=== PATIENT | male | born 1940 | race African-American/Black ===

== ENCOUNTER 2018-01-21 | Inpatient (IN) | payer MEDICARE, MEDICAID ==
[~2018-01-21] VITALS: Ht 172.7 cm; Wt 90.3 kg
[2018-01-21] VITALS (62 sets, daily range): BP systolic 73–157; BP diastolic 35–95
[~2018-01-21] MED LIST: AMLO10TA4 PO; DOXA2TAB2 PO; DUTA0.5C2 PO; ERGO400T3 PO; NIFE30TA43 PO; OLME1TAB14 PO; TAMS-11 PO
[2018-01-21] MEDS ORDERED: NICARDIPINE 100 MG in SODIUM CHLORIDE 0.9% 60 ML IV PRN (01:45)
[2018-01-21 01:46] LABS: BG BASE EXCESS -1.9 mmol/L (-2.0-2.0); BG CARBOXYHEMOGLOBIN 0.7 % (0.5-1.5); BG DEOXYHEMOGLOBIN 3.6 % (0.0-5.0); BG FRACTION INSPIRED OXYGEN 50; BG HCO3 ACT 21.9 mmol/L (22.0-26.0); BG METHEMOGLOBIN 0.3 % (0.0-1.5); BG OXYGEN SATURATION 96.4 % (92.0-98.5); BG OXYHEMOGLOBIN 95.4 % (94.0-97.0); BG PCO2 35.1 mmHg (35.0-45.0); BG PH 7.413 (7.350-7.450); BG PO2 81.8 mmHg (75.0-100.0); BG SAMPLE SITE LEFT RADIAL; BG TIDAL VOLUME(mL) 500 mL; BG TOTAL HEMOGLOBIN 16.9 g/dL (12.0-18.0); BG VENT MODE VENT - A/C; BG VENT RATE 16 set
[2018-01-21] MEDS ORDERED: HYDR-4133 GT (02:22)
[2018-01-21] MEDS ORDERED: AMLO10TA80 MT (02:22)
[2018-01-21] MEDS ORDERED: ATOR20TA65 MT (02:22)
[2018-01-21] MEDS ORDERED: FAMO20TA8 MT (02:22)
[2018-01-21] MEDS ORDERED: IPRA3AMP31 IH (02:22)
[2018-01-21] MEDS ORDERED: FINA5TAB11 PO (02:22)
[2018-01-21] MEDS ORDERED: APIX2.5T MT (02:22)
[2018-01-21] MEDS ORDERED: AMI2 MT (02:22)
[2018-01-21] MEDS ORDERED: LACT1CAP60 MT (02:22)
[2018-01-21] MEDS ORDERED: TRAM50TA94 PO (02:22)
[2018-01-21] MEDS: PROPOFOL 10MG/ML 100ML 100 ML IV PRN (03:34)
[2018-01-21] MEDS ORDERED: ONDANSETRON HCL 4MG/2ML VIAL IV PRN (04:45)
[2018-01-21 07:03] LABS: INR 1.1; PROTHROMBIN TIME 11.4 sec (9.4-11.6)
[2018-01-21 07:45] LABS: HEMOGLOBIN. 15.7 g/dL (14.0-18.0); MEAN CORPUSCULAR HEMOGLOBIN 28.7 pg (28.0-32.0); MEAN CORPUSCULAR VOLUME 87.7 fL (80.0-94.0); MEAN PLATELET VOLUME 10.3 fl (7.4-10.4); PLATELET 238 x1000/uL (130-400); RED BLOOD CELL COUNT 5.47 mill/uL (4.7-6.1); RED CELL DISTRIBUTION WIDTH 15.4 % (11.6-14.6)
[2018-01-21] MEDS: IPRATROPIUM/ALBUTEROL 0.5-3(2.5)MG/3ML NEB HHN SCH ×3 (08:00→20:23)
[2018-01-21 08:53] LABS: PHOSPHORUS 3.7 mg/dL (2.5-4.9)
[2018-01-21] MEDS ORDERED: GADOBENATE DIMEGLUMINE 529 MG/ML 10ML IV ONE (09:07)
[2018-01-21] MEDS: LEVETIRACETAM 500 MG in SODIUM CHLORIDE 0.9% 100 ML IV SCH ×2 (09:38→21:02)
[2018-01-21] MEDS: DEXT 5%/LACTATED RINGERS 1,000 ML IV SCH (09:38)
[2018-01-21] MEDS ORDERED: HYDRALAZINE 20MG/ML VIAL IV PRN (09:45)
[2018-01-21] MEDS: PANTOPRAZOLE SODIUM 40 MG/VIAL IV SCH (10:10)
[2018-01-21] MEDS: CEFEPIME 2,000 MG in DEXT 5% WATER 100 ML IV SCH (12:37)
[2018-01-21 12:50] LABS: ATYPICAL LYMPHOCYTES 1; PLATELET ESTIMATE NORMAL
[2018-01-21] MEDS ORDERED: PHENYTOIN SODIUM 500 MG in SODIUM CHLORIDE 0.9% 50 ML IV NR (13:00)
[2018-01-21 13:04] LABS: CREATINE KINASE 45 IU/L (39-308)
[2018-01-21] MEDS: BUDESONIDE 0.5MG/2ML NEB HHN SCH (13:39)
[2018-01-21] MEDS: METRONIDAZOLE 500 MG PREMIX 100 ML IV SCH ×2 (13:53→21:03)
[2018-01-21 16:19] LABS: CLARITY URINE TURBID (CLEAR); COLOR URINE AMBER (YELLOW); KETONES URINE TRACE (NEGATIVE); LEUKOCYTE ESTERASE URINE 3+ (NEGATIVE); NITRITE URINE NEGATIVE (NEGATIVE); OCCULT BLOOD URINE 3+ (NEGATIVE); PROTEIN URINE 1+ (NEGATIVE); SPECIFIC GRAVITY URINE 1.028 (1.005-1.030)
[2018-01-21 17:05] LABS: *AMPHETAMINES SCREEN URINE NEGATIVE (NEGATIVE); *BARBITURATES SCREEN URINE NEGATIVE (NEGATIVE); *BENZODIAZEPINES SCREEN URINE PRESUMTIVE POSITIVE (NEGATIVE); *COCAINE SCREEN URINE NEGATIVE (NEGATIVE); METHADONE URINE SCREEN NEGATIVE (NEGATIVE)
[2018-01-21 17:07] LABS: CANNABINOID URINE SCREEN NEGATIVE (NEGATIVE); OPIATES URINE SCREEN NEGATIVE (NEGATIVE); PHENCYCLIDINE URINE SCREEN NEGATIVE (NEGATIVE)
[2018-01-21] MEDS ORDERED: PHENYTOIN SODIUM 300 MG in SODIUM CHLORIDE 0.9% 50 ML IV SCH (21:00)
[2018-01-21] MEDS: PHENYTOIN SODIUM 300 MG in SODIUM CHLORIDE 0.9% 50 ML IV SCH (21:00)
[2018-01-22] VITALS (52 sets, daily range): BP systolic 86–167; BP diastolic 52–102
[2018-01-22] MEDS: CEFEPIME 2,000 MG in DEXT 5% WATER 100 ML IV SCH ×2 (00:51→12:34)
[2018-01-22] MEDS: DEXT 5%/LACTATED RINGERS 1,000 ML IV SCH (01:02)
[2018-01-22] MEDS: BUDESONIDE 0.5MG/2ML NEB HHN SCH ×3 (01:50→20:13)
[2018-01-22] MEDS: IPRATROPIUM/ALBUTEROL 0.5-3(2.5)MG/3ML NEB HHN SCH ×4 (01:50→20:13)
[2018-01-22] MEDS: PROPOFOL 10MG/ML 100ML 100 ML IV PRN (02:59)
[2018-01-22 05:11] LABS: HEMATOCRIT. 42.4 % (42.0-52.0); HEMOGLOBIN. 13.9 g/dL (14.0-18.0); MEAN CORPUSCULAR HEMOGLOBIN 28.4 pg (28.0-32.0); MEAN CORPUSCULAR VOLUME 86.7 fL (80.0-94.0); MEAN PLATELET VOLUME 9.7 fl (7.4-10.4); PLATELET 213 x1000/uL (130-400); RED BLOOD CELL COUNT 4.89 mill/uL (4.7-6.1); RED CELL DISTRIBUTION WIDTH 15.8 % (11.6-14.6)
[2018-01-22 05:21] LABS: CHLORIDE 116 mEq/L (98-107)
[2018-01-22] MEDS: METRONIDAZOLE 500 MG PREMIX 100 ML IV SCH ×3 (05:43→21:22)
[2018-01-22 08:01] LABS: BG BASE EXCESS -1.2 mmol/L (-2.0-2.0); BG CARBOXYHEMOGLOBIN 0.8 % (0.5-1.5); BG DEOXYHEMOGLOBIN 1.8 % (0.0-5.0); BG FRACTION INSPIRED OXYGEN 40; BG HCO3 ACT 21.2 mmol/L (22.0-26.0); BG METHEMOGLOBIN 0.2 % (0.0-1.5); BG OXYGEN SATURATION 98.2 % (92.0-98.5); BG OXYHEMOGLOBIN 97.2 % (94.0-97.0); BG PCO2 29.3 mmHg (35.0-45.0); BG PH 7.478 (7.350-7.450); BG PO2 101.7 mmHg (75.0-100.0); BG SAMPLE SITE RIGHT RADIAL; BG TIDAL VOLUME(mL) 500 mL; BG TOTAL HEMOGLOBIN 13.3 g/dL (12.0-18.0); BG VENT MODE VENT - A/C; BG VENT RATE 14 set
[2018-01-22 08:15] LABS: T4 FREE 1.5 ng/dL (0.76-1.46)
[2018-01-22] MEDS: LEVETIRACETAM 500 MG in SODIUM CHLORIDE 0.9% 100 ML IV SCH ×2 (08:27→20:12)
[2018-01-22] MEDS: PANTOPRAZOLE SODIUM 40 MG/VIAL IV SCH (08:28)
[2018-01-22 09:08] LABS: PLATELET ESTIMATE NORMAL
[2018-01-22] MEDS: DEXTROSE 5% WATER 1,000 ML IV SCH (11:52)
[2018-01-22] MEDS ORDERED: PHENYTOIN SODIUM 800 MG in SODIUM CHLORIDE 0.9% 100 ML IV SCH (13:00)
[2018-01-22] MEDS: PHENYTOIN SODIUM 300 MG in SODIUM CHLORIDE 0.9% 50 ML IV SCH (20:12)
[2018-01-23] VITALS (48 sets, daily range): BP systolic 80–162; BP diastolic 43–89
[2018-01-23] MEDS: CEFEPIME 2,000 MG in DEXT 5% WATER 100 ML IV SCH ×2 (01:11→13:10)
[2018-01-23] MEDS: IPRATROPIUM/ALBUTEROL 0.5-3(2.5)MG/3ML NEB HHN SCH ×4 (02:28→20:15)
[2018-01-23] MEDS: DEXTROSE 5% WATER 1,000 ML IV SCH ×2 (05:01→07:01)
[2018-01-23] MEDS: METRONIDAZOLE 500 MG PREMIX 100 ML IV SCH ×3 (05:42→23:01)
[2018-01-23 05:44] LABS: BASOPHILS % 0.3 % (0.0-2.0); EOSINOPHILS % 0.2 % (0.0-5.0); HEMATOCRIT. 41.9 % (42.0-52.0); HEMOGLOBIN. 13.7 g/dL (14.0-18.0); LYMPHOCYTES % 7.6 % (20.0-50.0); MEAN CORPUSCULAR HEMOGLOBIN 28.8 pg (28.0-32.0); MEAN CORPUSCULAR VOLUME 87.8 fL (80.0-94.0); MEAN PLATELET VOLUME 10.2 fl (7.4-10.4); MONOCYTES % 7.8 % (2.0-8.0); NEUTROPHILS % 84.1 % (40.0-76.0); PLATELET 205 x1000/uL (130-400); RED BLOOD CELL COUNT 4.77 mill/uL (4.7-6.1); RED CELL DISTRIBUTION WIDTH 15.7 % (11.6-14.6)
[2018-01-23] MEDS ORDERED: POTASSIUM CHLORIDE 20MEQ/PACKET PO SCH (07:00)
[2018-01-23 07:59] LABS: BG BASE EXCESS -1.3 mmol/L (-2.0-2.0); BG CARBOXYHEMOGLOBIN 0.6 % (0.5-1.5); BG DEOXYHEMOGLOBIN 1.8 % (0.0-5.0); BG FRACTION INSPIRED OXYGEN 40; BG HCO3 ACT 22.8 mmol/L (22.0-26.0); BG METHEMOGLOBIN 0.2 % (0.0-1.5); BG OXYGEN SATURATION 98.2 % (92.0-98.5); BG OXYHEMOGLOBIN 97.4 % (94.0-97.0); BG PCO2 36.7 mmHg (35.0-45.0); BG PH 7.412 (7.350-7.450); BG PO2 112.7 mmHg (75.0-100.0); BG SAMPLE SITE RIGHT RADIAL; BG TIDAL VOLUME(mL) 550 mL; BG TOTAL HEMOGLOBIN 13.5 g/dL (12.0-18.0); BG VENT MODE VENT - A/C; BG VENT RATE 12 set
[2018-01-23] MEDS: LEVETIRACETAM 500 MG in SODIUM CHLORIDE 0.9% 100 ML IV SCH ×2 (08:24→21:51)
[2018-01-23] MEDS: PANTOPRAZOLE SODIUM 40 MG/VIAL IV SCH (08:24)
[2018-01-23] MEDS: BUDESONIDE 0.5MG/2ML NEB HHN SCH ×2 (08:25→20:15)
[2018-01-23] MEDS ORDERED: MORPHINE SULFATE 4 MG/ML CPJ (NOT FOR IM USE) IV PRN (19:30)
[2018-01-23] MEDS: PHENYTOIN 100 MG/4 ML UDC PEG SCH (21:51)
[2018-01-24] VITALS (49 sets, daily range): BP systolic 93–182; BP diastolic 56–109
[2018-01-24] MEDS: IPRATROPIUM/ALBUTEROL 0.5-3(2.5)MG/3ML NEB HHN SCH ×4 (03:54→20:31)
[2018-01-24] MEDS: METRONIDAZOLE 500 MG PREMIX 100 ML IV SCH ×3 (05:27→21:56)
[2018-01-24 05:44] LABS: BASOPHILS % 0.3 % (0.0-2.0); EOSINOPHILS % 1.6 % (0.0-5.0); HEMATOCRIT. 39.1 % (42.0-52.0); LYMPHOCYTES % 14.3 % (20.0-50.0); MEAN CORPUSCULAR HEMOGLOBIN 28.9 pg (28.0-32.0); MEAN CORPUSCULAR VOLUME 86.9 fL (80.0-94.0); MEAN PLATELET VOLUME 9.9 fl (7.4-10.4); MONOCYTES % 7.8 % (2.0-8.0); PLATELET 172 x1000/uL (130-400); RED BLOOD CELL COUNT 4.49 mill/uL (4.7-6.1); RED CELL DISTRIBUTION WIDTH 15.9 % (11.6-14.6)
[2018-01-24 06:10] LABS: PHOSPHORUS 1.2 mg/dL (2.5-4.9)
[2018-01-24] MEDS: BUDESONIDE 0.5MG/2ML NEB HHN SCH (08:09)
[2018-01-24] MEDS: PANTOPRAZOLE SODIUM 40 MG/VIAL IV SCH (08:36)
[2018-01-24] MEDS: LEVETIRACETAM 500 MG in SODIUM CHLORIDE 0.9% 100 ML IV SCH ×2 (08:37→21:29)
[2018-01-24] MEDS ORDERED: POTASSIUM PHOS,M-BASIC-D-BASIC 20 MMOL in DEXT 5% WATER 243.3333 ML IV NR (09:00)
[2018-01-24 09:06] LABS: FOLICLE STIMULATING HORMONE 4.9 mIU/mL (1.5-12.4); PROLACTIN 23.6 ng/mL (4.0-15.2)
[2018-01-24] MEDS ORDERED: EPINEPHRINE 0.1MG/ML (1:10,000) 10ML SYR IV ONE (10:30)
[2018-01-24] MEDS: AMIODARONE HCL 200 MG TABLET PO SCH (12:55)
[2018-01-24] MEDS: AMLODIPINE 10MG TABLET PO SCH (12:55)
[2018-01-24] MEDS: METOCLOPRAMIDE HCL 10MG/2ML VIAL IV SCH ×3 (12:55→23:13)
[2018-01-24] MEDS: CEFEPIME 2,000 MG in DEXT 5% WATER 100 ML IV SCH (12:55)
[2018-01-24] MEDS: DEXTROSE 5% WATER 1,000 ML IV SCH (12:57)
[2018-01-24] MEDS: PHENYTOIN 100 MG/4 ML UDC PEG SCH (20:44)
[2018-01-25] VITALS (34 sets, daily range): BP systolic 87–157; BP diastolic 48–104
[2018-01-25] MEDS: IPRATROPIUM/ALBUTEROL 0.5-3(2.5)MG/3ML NEB HHN SCH ×4 (02:00→20:53)
[2018-01-25] MEDS: METOCLOPRAMIDE HCL 10MG/2ML VIAL IV SCH ×4 (05:14→23:07)
[2018-01-25] MEDS: DEXTROSE 5% WATER 1,000 ML IV SCH (05:14)
[2018-01-25] MEDS: METRONIDAZOLE 500 MG PREMIX 100 ML IV SCH ×3 (05:14→20:50)
[2018-01-25 05:50] LABS: BASOPHILS % 0.4 % (0.0-2.0); EOSINOPHILS % 4.1 % (0.0-5.0); HEMATOCRIT. 38.6 % (42.0-52.0); HEMOGLOBIN. 12.8 g/dL (14.0-18.0); LYMPHOCYTES % 16.7 % (20.0-50.0); MEAN CORPUSCULAR HEMOGLOBIN 28.8 pg (28.0-32.0); MEAN CORPUSCULAR VOLUME 86.7 fL (80.0-94.0); MEAN PLATELET VOLUME 9.6 fl (7.4-10.4); MONOCYTES % 9.3 % (2.0-8.0); NEUTROPHILS % 69.5 % (40.0-76.0); PLATELET 169 x1000/uL (130-400); RED BLOOD CELL COUNT 4.45 mill/uL (4.7-6.1); RED CELL DISTRIBUTION WIDTH 15.7 % (11.6-14.6)
[2018-01-25 07:06] LABS: CHLORIDE 111 mEq/L (98-107)
[2018-01-25 08:29] LABS: PHOSPHORUS 1.3 mg/dL (2.5-4.9)
[2018-01-25] MEDS: LEVETIRACETAM 500 MG in SODIUM CHLORIDE 0.9% 100 ML IV SCH ×2 (09:16→20:50)
[2018-01-25] MEDS: PANTOPRAZOLE SODIUM 40 MG/VIAL IV SCH (09:16)
[2018-01-25] MEDS: AMLODIPINE 10MG TABLET PO SCH (09:17)
[2018-01-25] MEDS: METHIMAZOLE 5MG TABLET NG SCH (09:17)
[2018-01-25] MEDS: AMIODARONE HCL 200 MG TABLET PO SCH (09:18)
[2018-01-25] MEDS: CEFEPIME 2,000 MG in DEXT 5% WATER 100 ML IV SCH (13:01)
[2018-01-25] MEDS ORDERED: POTASSIUM PHOS,M-BASIC-D-BASIC 20 MMOL in DEXT 5% WATER 250 ML IV NR (13:30)
[2018-01-25] MEDS: PHENYTOIN 100 MG/4 ML UDC PEG SCH (20:50)
[2018-01-26] VITALS (31 sets, daily range): BP systolic 40–180; BP diastolic 19–118
[2018-01-26] MEDS: IPRATROPIUM/ALBUTEROL 0.5-3(2.5)MG/3ML NEB HHN SCH ×4 (02:07→20:22)
[2018-01-26 04:09] LABS: HUMAN GROWTH HORMONE 0.1 ng/mL (0.0-10.0)
[2018-01-26] MEDS: METRONIDAZOLE 500 MG PREMIX 100 ML IV SCH ×3 (05:16→21:11)
[2018-01-26] MEDS: METOCLOPRAMIDE HCL 10MG/2ML VIAL IV SCH ×4 (05:16→23:59)
[2018-01-26] MEDS: AMIODARONE HCL 200 MG TABLET PO SCH (09:45)
[2018-01-26] MEDS: METHIMAZOLE 5MG TABLET NG SCH (09:45)
[2018-01-26] MEDS: LEVETIRACETAM 500 MG in SODIUM CHLORIDE 0.9% 100 ML IV SCH ×2 (09:45→21:12)
[2018-01-26] MEDS: AMLODIPINE 10MG TABLET PO SCH (09:45)
[2018-01-26] MEDS: PANTOPRAZOLE SODIUM 40 MG/VIAL IV SCH (09:45)
[2018-01-26 09:54] LABS: BASOPHILS % 0.4 % (0.0-2.0); EOSINOPHILS % 2.7 % (0.0-5.0); HEMATOCRIT. 38.8 % (42.0-52.0); HEMOGLOBIN. 12.8 g/dL (14.0-18.0); LYMPHOCYTES % 12.1 % (20.0-50.0); MEAN CORPUSCULAR HEMOGLOBIN 28.8 pg (28.0-32.0); MEAN CORPUSCULAR VOLUME 87.2 fL (80.0-94.0); MEAN PLATELET VOLUME 9.7 fl (7.4-10.4); MONOCYTES % 7.4 % (2.0-8.0); NEUTROPHILS % 77.4 % (40.0-76.0); PLATELET 197 x1000/uL (130-400); RED BLOOD CELL COUNT 4.45 mill/uL (4.7-6.1); RED CELL DISTRIBUTION WIDTH 15.4 % (11.6-14.6)
[2018-01-26] MEDS: CEFEPIME 2,000 MG in DEXT 5% WATER 100 ML IV SCH (12:14)
[2018-01-26] MEDS ORDERED: POTASSIUM CHLORIDE 20MEQ/PACKET PO NR (14:15)
[2018-01-26] MEDS: PHENYTOIN 100 MG/4 ML UDC PEG SCH (21:10)
[2018-01-26] MEDS ORDERED: POTASSIUM PHOS,M-BASIC-D-BASIC 20 MMOL in DEXT 5% WATER 243.3333 ML IV NR (21:30)
[2018-01-27] VITALS (59 sets, daily range): BP systolic 113–172; BP diastolic 50–94
[2018-01-27] MEDS: IPRATROPIUM/ALBUTEROL 0.5-3(2.5)MG/3ML NEB HHN SCH ×4 (01:28→20:25)
[2018-01-27] MEDS: METOCLOPRAMIDE HCL 10MG/2ML VIAL IV SCH ×3 (05:01→18:01)
[2018-01-27] MEDS: METRONIDAZOLE 500 MG PREMIX 100 ML IV SCH ×3 (05:01→21:53)
[2018-01-27 05:14] LABS: BASOPHILS % 0.6 % (0.0-2.0); EOSINOPHILS % 2.9 % (0.0-5.0); HEMATOCRIT. 41.1 % (42.0-52.0); HEMOGLOBIN. 13.5 g/dL (14.0-18.0); LYMPHOCYTES % 14.9 % (20.0-50.0); MEAN CORPUSCULAR HEMOGLOBIN 29.2 pg (28.0-32.0); MEAN CORPUSCULAR VOLUME 88.8 fL (80.0-94.0); MEAN PLATELET VOLUME 9.1 fl (7.4-10.4); MONOCYTES % 8.8 % (2.0-8.0); NEUTROPHILS % 72.8 % (40.0-76.0); PLATELET 192 x1000/uL (130-400); RED BLOOD CELL COUNT 4.63 mill/uL (4.7-6.1)
[2018-01-27 05:17] LABS: CHLORIDE 112 mEq/L (98-107)
[2018-01-27] MEDS ORDERED: SODIUM BICARBONATE 4% (2.4MEQ) 5ML VIAL IV ONE (09:11)
[2018-01-27] MEDS ORDERED: LIDOCAINE HCL 1% 20ML VIAL (Pyxis) INJ ONE (09:11)
[2018-01-27 09:17] LABS: BASOPHILS % 0.7 % (0.0-2.0); EOSINOPHILS % 3.4 % (0.0-5.0); HEMATOCRIT. 37.8 % (42.0-52.0); HEMOGLOBIN. 12.6 g/dL (14.0-18.0); LYMPHOCYTES % 11.3 % (20.0-50.0); MEAN CORPUSCULAR VOLUME 87.1 fL (80.0-94.0); MEAN PLATELET VOLUME 9.2 fl (7.4-10.4); MONOCYTES % 9.3 % (2.0-8.0); NEUTROPHILS % 75.3 % (40.0-76.0); PLATELET 203 x1000/uL (130-400); RED BLOOD CELL COUNT 4.34 mill/uL (4.7-6.1); RED CELL DISTRIBUTION WIDTH 15.9 % (11.6-14.6)
[2018-01-27 09:20] LABS: CHLORIDE 112 mEq/L (98-107)
[2018-01-27] MEDS: PANTOPRAZOLE SODIUM 40 MG/VIAL IV SCH (09:51)
[2018-01-27] MEDS: AMIODARONE HCL 200 MG TABLET PO SCH (09:51)
[2018-01-27] MEDS: METHIMAZOLE 5MG TABLET NG SCH (09:51)
[2018-01-27] MEDS: AMLODIPINE 10MG TABLET PO SCH (09:51)
[2018-01-27] MEDS: LEVETIRACETAM 500 MG in SODIUM CHLORIDE 0.9% 100 ML IV SCH ×2 (09:52→20:30)
[2018-01-27 10:15] LABS: PHOSPHORUS 2.3 mg/dL (2.5-4.9)
[2018-01-27 10:21] LABS: BG BASE EXCESS 0.8 mmol/L (-2.0-2.0); BG CARBOXYHEMOGLOBIN 0.2 % (0.5-1.5); BG DEOXYHEMOGLOBIN 4.9 % (0.0-5.0); BG FRACTION INSPIRED OXYGEN 40; BG HCO3 ACT 24.8 mmol/L (22.0-26.0); BG OXYGEN SATURATION 95.1 % (92.0-98.5); BG OXYHEMOGLOBIN 94.9 % (94.0-97.0); BG PCO2 37.4 mmHg (35.0-45.0); BG PH 7.439 (7.350-7.450); BG PO2 70.4 mmHg (75.0-100.0); BG SAMPLE SITE RIGHT RADIAL; BG TOTAL HEMOGLOBIN 13.3 g/dL (12.0-18.0); BG VENT MODE T-TUBE
[2018-01-27] MEDS ORDERED: POTASSIUM PHOS,M-BASIC-D-BASIC 10 MMOL in DEXT 5% WATER 246.6667 ML IV SCH (11:30)
[2018-01-27] MEDS: CEFEPIME 2,000 MG in DEXT 5% WATER 100 ML IV SCH (12:18)
[2018-01-27] MEDS: LOSARTAN POTASSIUM 25 MG TABLET PO SCH (12:20)
[2018-01-27] MEDS: PHENYTOIN 100 MG/4 ML UDC PEG SCH (20:30)
[2018-01-28] VITALS (12 sets, daily range): BP systolic 110–139; BP diastolic 57–76
[2018-01-28] MEDS: METOCLOPRAMIDE HCL 10MG/2ML VIAL IV SCH ×4 (00:31→18:46)
[2018-01-28] MEDS: IPRATROPIUM/ALBUTEROL 0.5-3(2.5)MG/3ML NEB HHN SCH ×2 (01:03→20:16)
[2018-01-28] MEDS: METRONIDAZOLE 500 MG PREMIX 100 ML IV SCH (06:31)
[2018-01-28 07:07] LABS: EOSINOPHILS % 4.4 % (0.0-5.0); HEMATOCRIT. 36.2 % (42.0-52.0); HEMOGLOBIN. 12.2 g/dL (14.0-18.0); LYMPHOCYTES % 17.5 % (20.0-50.0); MEAN CORPUSCULAR HEMOGLOBIN 29.3 pg (28.0-32.0); MEAN CORPUSCULAR VOLUME 87.4 fL (80.0-94.0); MEAN PLATELET VOLUME 9.3 fl (7.4-10.4); MONOCYTES % 9.2 % (2.0-8.0); NEUTROPHILS % 67.9 % (40.0-76.0); PLATELET 188 x1000/uL (130-400); RED BLOOD CELL COUNT 4.14 mill/uL (4.7-6.1)
[2018-01-28 07:35] LABS: CHLORIDE 113 mEq/L (98-107)
[2018-01-28] MEDS: METHIMAZOLE 5MG TABLET NG SCH (09:05)
[2018-01-28] MEDS: PANTOPRAZOLE SODIUM 40 MG/VIAL IV SCH (09:05)
[2018-01-28] MEDS: AMLODIPINE 10MG TABLET PO SCH (09:06)
[2018-01-28] MEDS: LEVETIRACETAM 500 MG in SODIUM CHLORIDE 0.9% 100 ML IV SCH ×2 (09:06→21:29)
[2018-01-28] MEDS: LOSARTAN POTASSIUM 25 MG TABLET PO SCH (09:06)
[2018-01-28] MEDS: AMIODARONE HCL 200 MG TABLET PO SCH (09:08)
[2018-01-28] MEDS: CEFEPIME 2,000 MG in DEXT 5% WATER 100 ML IV SCH (12:33)
[2018-01-28] MEDS: METRONIDAZOLE 500MG TABLET PO SCH ×2 (14:53→21:28)
[2018-01-28] MEDS: PHENYTOIN 100 MG/4 ML UDC PEG SCH (20:34)
[2018-01-29] VITALS (18 sets, daily range): BP systolic 119–147; BP diastolic 59–77
[2018-01-29] MEDS: METOCLOPRAMIDE HCL 10MG/2ML VIAL IV SCH ×4 (00:17→23:49)
[2018-01-29] MEDS: IPRATROPIUM/ALBUTEROL 0.5-3(2.5)MG/3ML NEB HHN SCH ×4 (02:43→20:26)
[2018-01-29] MEDS: LOSARTAN POTASSIUM 25 MG TABLET PO SCH (09:13)
[2018-01-29] MEDS: AMIODARONE HCL 200 MG TABLET PO SCH (09:13)
[2018-01-29] MEDS: PANTOPRAZOLE SODIUM 40 MG/VIAL IV SCH (09:13)
[2018-01-29] MEDS: LEVETIRACETAM 500 MG in SODIUM CHLORIDE 0.9% 100 ML IV SCH ×2 (09:13→20:49)
[2018-01-29] MEDS: AMLODIPINE 10MG TABLET PO SCH (09:13)
[2018-01-29] MEDS: METHIMAZOLE 5MG TABLET NG SCH (09:14)
[2018-01-29] MEDS: PHENYTOIN 100 MG/4 ML UDC PEG SCH (20:49)
[2018-01-30] VITALS (11 sets, daily range): BP systolic 107–150; BP diastolic 48–89
[2018-01-30] MEDS: IPRATROPIUM/ALBUTEROL 0.5-3(2.5)MG/3ML NEB HHN SCH ×4 (01:30→20:04)
[2018-01-30] MEDS: METOCLOPRAMIDE HCL 10MG/2ML VIAL IV SCH ×4 (05:20→23:48)
[2018-01-30 06:27] LABS: EOSINOPHILS % 3.6 % (0.0-5.0); HEMATOCRIT. 36.4 % (42.0-52.0); HEMOGLOBIN. 12.2 g/dL (14.0-18.0); LYMPHOCYTES % 18.9 % (20.0-50.0); MEAN CORPUSCULAR HEMOGLOBIN 29.2 pg (28.0-32.0); MEAN CORPUSCULAR VOLUME 87.4 fL (80.0-94.0); MONOCYTES % 9.5 % (2.0-8.0); RED BLOOD CELL COUNT 4.16 mill/uL (4.7-6.1); RED CELL DISTRIBUTION WIDTH 16.1 % (11.6-14.6)
[2018-01-30 06:39] LABS: CHLORIDE 111 mEq/L (98-107)
[2018-01-30 07:22] LABS: MEAN PLATELET VOLUME 9.1 fl (7.4-10.4); PLATELET 206 x1000/uL (130-400)
[2018-01-30] MEDS: PANTOPRAZOLE SODIUM 40 MG/VIAL IV SCH (08:17)
[2018-01-30] MEDS: METHIMAZOLE 5MG TABLET NG SCH (08:18)
[2018-01-30] MEDS: AMLODIPINE 10MG TABLET PO SCH (08:18)
[2018-01-30] MEDS: LOSARTAN POTASSIUM 25 MG TABLET PO SCH (08:18)
[2018-01-30] MEDS: AMIODARONE HCL 200 MG TABLET PO SCH (08:18)
[2018-01-30] MEDS: LEVETIRACETAM 500 MG in SODIUM CHLORIDE 0.9% 100 ML IV SCH ×2 (10:03→20:58)
[2018-01-30] MEDS: PHENYTOIN 100 MG/4 ML UDC PEG SCH (20:56)
[2018-01-31] VITALS: BP 147/89
[2018-01-31 02:00] VITALS: BP 141/70
[2018-01-31] MEDS: IPRATROPIUM/ALBUTEROL 0.5-3(2.5)MG/3ML NEB HHN SCH ×3 (02:13→16:35)
[2018-01-31 04:00] VITALS: BP 145/74
[2018-01-31] MEDS: METOCLOPRAMIDE HCL 10MG/2ML VIAL IV SCH ×2 (05:23→12:13)
[2018-01-31 06:00] VITALS: BP 131/75
[2018-01-31 06:13] LABS: HEMATOCRIT 38.1 % (42.0-52.0); HEMOGLOBIN 12.7 g/dL (14.0-18.0); MEAN CORPUSCULAR HEMOGLOBIN 29.2 pg (28.0-32.0); MEAN CORPUSCULAR VOLUME 87.6 fL (80.0-94.0); PLATELET 221 x1000/uL (130-400); RED BLOOD CELL COUNT 4.36 mill/uL (4.7-6.1)
[2018-01-31 07:49] LABS: CHLORIDE 112 mEq/L (98-107)
[2018-01-31] MEDS: PANTOPRAZOLE SODIUM 40 MG/VIAL IV SCH (10:12)
[2018-01-31] MEDS: LOSARTAN POTASSIUM 25 MG TABLET PO SCH (10:12)
[2018-01-31] MEDS: METHIMAZOLE 5MG TABLET NG SCH (10:12)
[2018-01-31] MEDS: AMLODIPINE 10MG TABLET PO SCH (10:12)
[2018-01-31] MEDS: LEVETIRACETAM 500 MG in SODIUM CHLORIDE 0.9% 100 ML IV SCH (10:18)
[2018-01-31] MEDS: AMIODARONE HCL 200 MG TABLET PO SCH (10:24)
[2018-01-31 12:00] VITALS: BP 115/73
[2018-01-31] MEDS ORDERED: DEXT 5% WATER 500 ML IV ONE (13:15)
== END 2018-01-31 17:52 | DRG 870 ==
LOC: MICUSO → 5EST 01-27 23:35
PROVIDERS: ADMIT Family Medicine Adult Medicine; ATTEND Family Medicine Adult Medicine
PROC: 5A1955Z Respiratory Ventilation, Greater than 96 Consecutive Hours (ICD-10-PCS; principal; 2018-01-21)
PROC: 4A00X4Z Measurement of Central Nervous Electrical Activity, External Approach (ICD-10-PCS; 2018-01-21)
PROC: 0BH17EZ Insertion of Endotracheal Airway into Trachea, Via Natural or Artificial Opening (ICD-10-PCS; 2018-01-21)
PROC: 05HA33Z Insertion of Infusion Device into Left Brachial Vein, Percutaneous Approach (ICD-10-PCS; 2018-01-27)
PROC: B54NZZA Ultrasonography of Left Upper Extremity Veins, Guidance (ICD-10-PCS; 2018-01-27)
DX: A41.50 Gram-negative sepsis, unspecified (principal); J69.0 Pneumonitis due to inhalation of food and vomit; J96.00 Acute respiratory failure, unspecified whether with hypoxia or hypercapnia; I63.9 Cerebral infarction, unspecified; N17.0 Acute kidney failure with tubular necrosis; C79.31 Secondary malignant neoplasm of brain; E87.1 Hypo-osmolality and hyponatremia; I13.0 Hypertensive heart and chronic kidney disease with heart failure and stage 1 through stage 4 chronic kidney disease, or unspecified chronic kidney disease; E87.0 Hyperosmolality and hypernatremia; N39.0 Urinary tract infection, site not specified; J44.0 Chronic obstructive pulmonary disease with (acute) lower respiratory infection; I50.30 Unspecified diastolic (congestive) heart failure; Z66 Do not resuscitate; I48.0 Paroxysmal atrial fibrillation; E78.5 Hyperlipidemia, unspecified; D35.2 Benign neoplasm of pituitary gland; D69.6 Thrombocytopenia, unspecified; G40.409 Other generalized epilepsy and epileptic syndromes, not intractable, without status epilepticus; C43.9 Malignant melanoma of skin, unspecified; E78.00 Pure hypercholesterolemia, unspecified; E83.52 Hypercalcemia; E83.39 Other disorders of phosphorus metabolism; E05.90 Thyrotoxicosis, unspecified without thyrotoxic crisis or storm; E86.0 Dehydration; F03.90 Unspecified dementia, unspecified severity, without behavioral disturbance, psychotic disturbance, mood disturbance, and anxiety; I25.10 Atherosclerotic heart disease of native coronary artery without angina pectoris; E87.8 Other disorders of electrolyte and fluid balance, not elsewhere classified; I95.9 Hypotension, unspecified; J84.10 Pulmonary fibrosis, unspecified; N18.9 Chronic kidney disease, unspecified; N40.0 Benign prostatic hyperplasia without lower urinary tract symptoms; R13.10 Dysphagia, unspecified; Z85.46 Personal history of malignant neoplasm of prostate; Z86.718 Personal history of other venous thrombosis and embolism; Z87.891 Personal history of nicotine dependence; Z90.79 Acquired absence of other genital organ(s); Z93.1 Gastrostomy status; Z79.899 Other long term (current) drug therapy
CPT/HCPCS: 36415; 36569; 36600; 70553; 71045; 71250; 74176; 76770; 76937; 80048; 80053; 80061; 80185; 80305; 81003; 82024; 82375; 82378; 82533; 82550; 82805; 83001; 83002; 83003; 83036; 83520; 83735; 83880; 83935; 83970; 84100; 84145; 84146; 84153; 84402; 84403; 84439; 84442; 84443; 84478; 84481; 85025; 85027; 85610; 87077; 87086; 87186; 93005; 93306; 93970; 94002; 94003; 94640; A6261; A9577; C1725; C9113; J0360; J0692; J1165; J1953; J2704; J2765; J3490; J7040; J7050; J7060; J7070; J7121; J7620; J7626; G0103